=== PATIENT | male | born 1940 | race Caucasian/White ===

== ENCOUNTER 2017-01-03 13:14 | Outpatient (CLI) | payer MEDICARE, OTHER | END 2017-01-03 13:15 | disposition home or self-care (01) | DX: I48.91 Unspecified atrial fibrillation (principal) ==

== ENCOUNTER 2017-02-28 14:00 | Outpatient (CLI) | payer MEDICARE, OTHER | END 2017-02-28 14:01 | disposition home or self-care (01) | DX: I48.91 Unspecified atrial fibrillation (principal) ==

== ENCOUNTER 2017-03-27 16:07 | Outpatient (CLI) | payer MEDICARE, OTHER | END 2017-03-27 16:08 | disposition home or self-care (01) | LOC: RT 16:07 | PROVIDERS: ATTEND Family Medicine | DX: Z01.810 Encounter for preprocedural cardiovascular examination (principal) | CPT/HCPCS: 93005 ==

== ENCOUNTER 2017-05-25 14:39 | Outpatient (CLI) | payer MEDICARE, OTHER | END 2017-05-25 14:40 | disposition home or self-care (01) | LOC: LAB.F 14:39 | PROVIDERS: ATTEND Family Medicine | DX: I48.91 Unspecified atrial fibrillation (principal) | CPT/HCPCS: 85610 ==

== ENCOUNTER 2017-06-28 13:06 | Outpatient (CLI) | payer MEDICARE, OTHER | END 2017-06-28 13:07 | disposition home or self-care (01) | LOC: LAB.F 13:06 | PROVIDERS: ATTEND Family Medicine | DX: I48.91 Unspecified atrial fibrillation (principal) | CPT/HCPCS: 85610 ==

== ENCOUNTER 2017-08-08 14:39 | Outpatient (CLI) | payer MEDICARE, OTHER | END 2017-08-08 14:40 | disposition home or self-care (01) | LOC: LAB.F 14:39 | PROVIDERS: ATTEND Family Medicine | DX: I48.91 Unspecified atrial fibrillation (principal) | CPT/HCPCS: 85610 ==

== ENCOUNTER 2017-09-13 08:00 | Outpatient (CLI) | payer MEDICARE, OTHER | END 2017-09-13 08:01 | disposition home or self-care (01) | LOC: LAB.F 08:00 | PROVIDERS: ATTEND Family Medicine | DX: I48.91 Unspecified atrial fibrillation (principal) | CPT/HCPCS: 85610 ==

== ENCOUNTER 2017-10-18 15:09 | Outpatient (CLI) | payer MEDICARE, OTHER ==
[2017-10-18 18:51] LABS: ALBUMIN/GLOBULIN RATIO 1.2 (1.0-2.2); BUN - BLOOD UREA NITROGEN 23 mg/dL (6-20); CARBON DIOXIDE - CO2 26 mmol/L (21-32); CHLORIDE 106 mmol/L (101-111); CHOL/HDL RATIO 2.8 (<5.0); CHOLESTEROL 160 mg/dL; CREATININE 0.9 mg/dL (0.6-1.2); GFR - MDRD 81 (>89); GLUCOSE 100 mg/dL (70-100); HDL CHOLESTEROL 57 mg/dL; LDL/HDL RATIO 1.5 (<3.6); SODIUM 140 mmol/L (135-145); TOTAL PROTEIN 7.6 g/dL (6.7-8.2); TRIGLYCERIDES 75 mg/dL; VLDL CHOLESTEROL 15 mg/dL
== END 2017-10-18 15:10 | disposition home or self-care (01) ==
LOC: LAB.F 15:09
PROVIDERS: ATTEND Family Medicine
DX: I48.91 Unspecified atrial fibrillation (principal); I10 Essential (primary) hypertension
CPT/HCPCS: 36415; 80053; 80061; 84403; 84443; 85610

== ENCOUNTER 2017-11-23 15:01 | Outpatient (CLI) | payer MEDICARE, OTHER | END 2017-11-23 15:02 | disposition home or self-care (01) | LOC: LAB.F 15:01 | PROVIDERS: ATTEND Family Medicine | DX: I48.91 Unspecified atrial fibrillation (principal) | CPT/HCPCS: 85610 ==

== ENCOUNTER 2018-01-10 08:00 | Outpatient (CLI) | payer MEDICARE, OTHER | END 2018-01-10 08:01 | LOC: LAB.F 08:00 | PROVIDERS: ATTEND Family Medicine | DX: I48.91 Unspecified atrial fibrillation (principal) | CPT/HCPCS: 85610 ==

== ENCOUNTER 2018-02-27 14:54 | Outpatient (CLI) | payer MEDICARE, OTHER | END 2018-02-27 14:55 | disposition home or self-care (01) | LOC: LAB.F 14:54 | PROVIDERS: ATTEND Family Medicine | DX: I48.91 Unspecified atrial fibrillation (principal) | CPT/HCPCS: 85610 ==

== ENCOUNTER 2018-05-10 08:00 | Outpatient (CLI) | payer MEDICARE, OTHER | END 2018-05-10 08:01 | LOC: LAB.F 08:00 | PROVIDERS: ATTEND Family Medicine | DX: I48.91 Unspecified atrial fibrillation (principal) | CPT/HCPCS: 85610 ==

== ENCOUNTER 2018-06-14 10:15 | Outpatient (CLI) | payer MEDICARE, OTHER ==
[2018-06-14 17:42] LABS: BASOPHILS # (AUTO) 0.1 10^3/uL (0.0-0.1); BASOPHILS % (AUTO) 2.2 %; EOSINOPHILS % (AUTO) 0.9 %; HGB - HEMOGLOBIN 14.6 g/dL (14.0-18.0); LYMPHOCYTES # (AUTO) 1.2 10^3/uL (1.5-3.5); LYMPHOCYTES % (AUTO) 23.1 %; MEAN CORPUSCULAR HEMOGLOBIN 32.9 pg (27.0-31.0); MEAN CORPUSCULAR VOLUME 99.4 fL (80.0-94.0); MEAN PLATELET VOLUME 8.7 fL (7.4-11.4); MONOCYTES # (AUTO) 0.5 10^3/uL (0.0-1.0); NEUTROPHILS # (AUTO) 3.3 10^3/uL (1.5-6.6); NEUTROPHILS % (AUTO) 63.8 %; PLT - PLATELET COUNT 207 10^3/uL (130-450); RED BLOOD COUNT 4.44 10^6/uL (4.70-6.10); RED CELL DISTRIBUTION WIDTH 14.4 % (12.0-15.0); WHITE BLOOD COUNT 5.1 x10^3/uL (4.8-10.8)
[2018-06-14 17:51] LABS: INR 2.1 (0.8-1.2); PT - PROTHROMBIN TIME 22.6 secs (9.9-12.6)
[2018-06-14 18:10] LABS: HB2 TOTAL 15.4 g/dL; HEMOGLOBIN A1C 0.74 g/dL; HEMOGLOBIN A1C % 6.5 % (4.6-6.2)
[2018-06-14 18:26] LABS: ALBUMIN 3.9 g/dL (3.2-5.5); ALBUMIN/GLOBULIN RATIO 1.1 (1.0-2.2); ALKALINE PHOSPHATASE 81 IU/L (42-121); ALT ALANINE AMINOTRANSFERASE 18 IU/L (10-60); AST ASPARTATE AMINOTRANSFERASE 37 IU/L (10-42); BUN - BLOOD UREA NITROGEN 16 mg/dL (6-20); CALCIUM 8.9 mg/dL (8.5-10.3); CARBON DIOXIDE - CO2 28 mmol/L (21-32); CHLORIDE 103 mmol/L (101-111); CHOL/HDL RATIO 2.8 (<5.0); CHOLESTEROL 155 mg/dL; CREATININE 0.8 mg/dL (0.6-1.2); GFR - MDRD 93 (>89); GLUCOSE 115 mg/dL (70-100); HDL CHOLESTEROL 55 mg/dL; LDL CHOLESTEROL,CALCULATED 89 mg/dL; LDL/HDL RATIO 1.6 (<3.6); SODIUM 138 mmol/L (135-145); TOTAL PROTEIN 7.3 g/dL (6.7-8.2); VLDL CHOLESTEROL 11 mg/dL
== END 2018-06-14 10:16 | disposition home or self-care (01) ==
LOC: LAB.F 10:15
PROVIDERS: ATTEND Physician Assistant Medical
DX: E78.5 Hyperlipidemia, unspecified (principal); E11.9 Type 2 diabetes mellitus without complications; R53.83 Other fatigue; Z51.81 Encounter for therapeutic drug level monitoring; Z79.01 Long term (current) use of anticoagulants
CPT/HCPCS: 36415; 80053; 80061; 82043; 83036; 83721; 84443; 85025; 85610

== ENCOUNTER 2018-07-11 14:46 | Outpatient (CLI) | payer MEDICARE, OTHER | END 2018-07-11 14:47 | disposition home or self-care (01) | LOC: LAB.F 14:46 | PROVIDERS: ATTEND Family Medicine | DX: I48.91 Unspecified atrial fibrillation (principal) | CPT/HCPCS: 85610 ==

== ENCOUNTER 2018-08-14 08:00 | Outpatient (CLI) | payer MEDICARE, OTHER | END 2018-08-14 08:01 | disposition home or self-care (01) | LOC: LAB.F 08:00 | PROVIDERS: ATTEND Family Medicine | DX: I48.91 Unspecified atrial fibrillation (principal) | CPT/HCPCS: 85610 ==

== ENCOUNTER 2018-09-22 10:26 | Outpatient (CLI) | payer MEDICARE, OTHER | END 2018-09-22 10:27 | disposition home or self-care (01) | LOC: LAB.F 10:26 | PROVIDERS: ATTEND Family Medicine | DX: I48.91 Unspecified atrial fibrillation (principal) | CPT/HCPCS: 85610 ==

== ENCOUNTER 2018-11-06 14:31 | Outpatient (CLI) | payer MEDICARE, OTHER | END 2018-11-06 14:32 | disposition home or self-care (01) | LOC: LAB.F 14:31 | PROVIDERS: ATTEND Family Medicine | DX: I48.91 Unspecified atrial fibrillation (principal) | CPT/HCPCS: 85610 ==

== ENCOUNTER 2019-01-02 14:59 | Outpatient (CLI) | payer MEDICARE, OTHER | END 2019-01-02 15:00 | disposition home or self-care (01) | LOC: LAB.F 14:59 | PROVIDERS: ATTEND Family Medicine | DX: I48.91 Unspecified atrial fibrillation (principal) | CPT/HCPCS: 85610 ==

== ENCOUNTER 2019-01-11 15:06 | Outpatient (CLI) | payer MEDICARE, OTHER | END 2019-01-11 15:07 | disposition home or self-care (01) | LOC: LAB.F 15:06 | PROVIDERS: ATTEND Family Medicine | DX: I48.91 Unspecified atrial fibrillation (principal) | CPT/HCPCS: 85610 ==

== ENCOUNTER 2019-02-14 11:34 | Outpatient (CLI) | payer MEDICARE, OTHER | END 2019-02-14 11:35 | disposition home or self-care (01) | LOC: LAB.F 11:34 | PROVIDERS: ATTEND Family Medicine | DX: I48.91 Unspecified atrial fibrillation (principal) | CPT/HCPCS: 85610 ==

== ENCOUNTER 2019-02-23 08:00 | Outpatient (CLI) | payer MEDICARE, OTHER | END 2019-02-23 23:59 | disposition home or self-care (01) | LOC: LAB.F 08:00 | PROVIDERS: ATTEND Family Medicine | DX: I48.91 Unspecified atrial fibrillation (principal) | CPT/HCPCS: 85610 ==

== ENCOUNTER 2019-03-07 15:36 | Outpatient (CLI) | payer MEDICARE, OTHER | END 2019-03-07 23:59 | disposition home or self-care (01) | LOC: LAB.F 15:36 | PROVIDERS: ATTEND Family Medicine | DX: I48.91 Unspecified atrial fibrillation (principal) | CPT/HCPCS: 85610 ==

== ENCOUNTER 2019-03-16 08:00 | Outpatient (CLI) | payer MEDICARE, OTHER | END 2019-03-16 23:59 | disposition home or self-care (01) | LOC: LAB.F 08:00 | PROVIDERS: ATTEND Family Medicine | DX: I48.91 Unspecified atrial fibrillation (principal) | CPT/HCPCS: 85610 ==

== ENCOUNTER 2019-04-04 08:00 | Outpatient (CLI) | payer MEDICARE, OTHER | END 2019-04-04 23:59 | disposition home or self-care (01) | LOC: LAB.F 08:00 | PROVIDERS: ATTEND Physician Assistant Medical | DX: Z51.81 Encounter for therapeutic drug level monitoring (principal); Z79.01 Long term (current) use of anticoagulants | CPT/HCPCS: 85610 ==

== ENCOUNTER 2019-05-22 14:55 | Outpatient (CLI) | payer MEDICARE, OTHER | END 2019-05-22 14:56 | disposition home or self-care (01) | LOC: LAB.S 14:55 | PROVIDERS: ATTEND Physician Assistant Medical | DX: Z79.01 Long term (current) use of anticoagulants (principal) | CPT/HCPCS: 85610 ==

== ENCOUNTER 2019-05-31 12:04 | Outpatient (CLI) | payer MEDICARE, OTHER | END 2019-05-31 12:05 | disposition home or self-care (01) | LOC: LAB.S 12:04 | PROVIDERS: ATTEND Physician Assistant Medical | DX: Z79.01 Long term (current) use of anticoagulants (principal) | CPT/HCPCS: 85610 ==

== ENCOUNTER 2019-06-21 | Outpatient (CLI) | payer MEDICARE, OTHER | END 2019-06-21 13:00 | disposition home or self-care (01) | DX: Z79.01 Long term (current) use of anticoagulants (principal) | CPT/HCPCS: 85610 ==

== ENCOUNTER 2019-08-07 14:42 | Outpatient (CLI) | payer MEDICARE, OTHER | END 2019-08-07 14:43 | disposition home or self-care (01) | LOC: LAB.S 14:42 | PROVIDERS: ATTEND Physician Assistant Medical | DX: Z79.01 Long term (current) use of anticoagulants (principal) | CPT/HCPCS: 85610 ==

== ENCOUNTER 2019-09-10 12:59 | Outpatient (CLI) | payer MEDICARE, OTHER | END 2019-09-10 13:00 | disposition home or self-care (01) | LOC: LAB.S 12:59 | PROVIDERS: ATTEND Physician Assistant Medical | DX: Z79.01 Long term (current) use of anticoagulants (principal) | CPT/HCPCS: 85610 ==

== ENCOUNTER 2019-10-09 15:57 | Outpatient (CLI) | payer MEDICARE, OTHER | END 2019-10-09 15:58 | disposition home or self-care (01) | LOC: LAB.S 15:57 | PROVIDERS: ATTEND Family Medicine | DX: Z79.01 Long term (current) use of anticoagulants (principal) | CPT/HCPCS: 85610 ==

== ENCOUNTER 2019-10-17 14:41 | Outpatient (CLI) | payer MEDICARE, OTHER | END 2019-10-17 14:42 | disposition home or self-care (01) | LOC: LAB.S 14:41 | PROVIDERS: ATTEND Family Medicine | DX: Z79.01 Long term (current) use of anticoagulants (principal) | CPT/HCPCS: 85610 ==

== ENCOUNTER 2019-10-25 14:10 | Outpatient (CLI) | payer MEDICARE, OTHER | END 2019-10-25 14:11 | disposition home or self-care (01) | LOC: LAB.S 14:10 | PROVIDERS: ATTEND Family Medicine | DX: Z79.01 Long term (current) use of anticoagulants (principal) | CPT/HCPCS: 85610 ==

== ENCOUNTER 2019-11-27 08:00 | Outpatient (CLI) | payer MEDICARE, OTHER | END 2019-11-27 23:59 | disposition home or self-care (01) | LOC: LAB.S 08:00 | PROVIDERS: ATTEND Family Medicine | DX: Z79.01 Long term (current) use of anticoagulants (principal) | CPT/HCPCS: 85610 ==

== ENCOUNTER 2019-12-20 13:08 | Outpatient (CLI) | payer MEDICARE, OTHER | END 2019-12-20 13:09 | disposition home or self-care (01) | LOC: LAB.S 13:08 | PROVIDERS: ATTEND Family Medicine | DX: Z79.01 Long term (current) use of anticoagulants (principal) | CPT/HCPCS: 85610 ==

== ENCOUNTER 2020-02-05 11:32 | Outpatient (CLI) | payer MEDICARE, OTHER | END 2020-02-05 11:33 | disposition home or self-care (01) | LOC: LAB.S 11:32 | PROVIDERS: ATTEND Family Medicine | DX: Z79.01 Long term (current) use of anticoagulants (principal) | CPT/HCPCS: 85610 ==

== ENCOUNTER 2020-07-07 15:44 | Outpatient (CLI) | payer MEDICARE, OTHER | END 2020-07-07 15:45 | disposition home or self-care (01) | LOC: LAB.S 15:44 | PROVIDERS: ATTEND Family Medicine | DX: Z79.01 Long term (current) use of anticoagulants (principal) | CPT/HCPCS: 85610 ==

== ENCOUNTER 2020-08-12 15:01 | Outpatient (CLI) | payer MEDICARE, OTHER | END 2020-08-12 15:02 | disposition home or self-care (01) | LOC: LAB.S 15:01 | PROVIDERS: ATTEND Family Medicine | DX: Z79.01 Long term (current) use of anticoagulants (principal) | CPT/HCPCS: 85610 ==

== ENCOUNTER 2020-09-12 14:13 | Outpatient (CLI) | payer MEDICARE, OTHER | END 2020-09-12 14:14 | disposition home or self-care (01) | LOC: LAB.S 14:13 | PROVIDERS: ATTEND Family Medicine | DX: Z79.01 Long term (current) use of anticoagulants (principal) | CPT/HCPCS: 85610 ==

== ENCOUNTER 2020-10-20 13:25 | Outpatient (CLI) | payer MEDICARE, OTHER | END 2020-10-20 13:26 | disposition home or self-care (01) | LOC: LAB.S 13:25 | PROVIDERS: ATTEND Family Medicine | DX: Z79.01 Long term (current) use of anticoagulants (principal) | CPT/HCPCS: 85610 ==

== ENCOUNTER 2020-12-09 15:14 | Outpatient (CLI) | payer MEDICARE, OTHER | END 2020-12-09 15:15 | disposition home or self-care (01) | LOC: LAB.S 15:14 | PROVIDERS: ATTEND Family Medicine | DX: Z79.01 Long term (current) use of anticoagulants (principal) | CPT/HCPCS: 85610 ==

== ENCOUNTER 2021-02-05 15:38 | Outpatient (CLI) | payer MEDICARE, OTHER | END 2021-02-05 15:39 | disposition home or self-care (01) | LOC: LAB.S 15:38 | PROVIDERS: ATTEND Family Medicine | DX: Z79.01 Long term (current) use of anticoagulants (principal) | CPT/HCPCS: 85610 ==

== ENCOUNTER 2021-03-10 11:05 | Outpatient (CLI) | payer MEDICARE, OTHER | END 2021-03-10 11:06 | disposition home or self-care (01) | LOC: LAB.S 11:05 | PROVIDERS: ATTEND Family Medicine | DX: Z79.01 Long term (current) use of anticoagulants (principal) | CPT/HCPCS: 85610 ==

== ENCOUNTER 2021-04-13 16:00 | Outpatient (CLI) | payer MEDICARE, OTHER | END 2021-04-13 16:01 | disposition home or self-care (01) | LOC: LAB.S 16:00 | PROVIDERS: ATTEND Family Medicine | DX: Z79.01 Long term (current) use of anticoagulants (principal) | CPT/HCPCS: 36416; 85610 ==

== ENCOUNTER 2021-05-13 14:48 | Outpatient (CLI) | payer MEDICARE, OTHER | END 2021-05-13 14:49 | disposition home or self-care (01) | LOC: LAB.S 14:48 | PROVIDERS: ATTEND Family Medicine | DX: Z79.01 Long term (current) use of anticoagulants (principal) | CPT/HCPCS: 85610 ==

== ENCOUNTER 2021-05-21 15:14 | Outpatient (CLI) | payer MEDICARE, OTHER | END 2021-05-21 15:15 | disposition home or self-care (01) | LOC: LAB.S 15:14 | PROVIDERS: ATTEND Family Medicine | DX: Z79.01 Long term (current) use of anticoagulants (principal) | CPT/HCPCS: 36416; 85610 ==

== ENCOUNTER 2021-06-09 11:40 | Outpatient (CLI) | payer MEDICARE, OTHER ==
[2021-06-09 15:10] LABS: HCT - HEMATOCRIT 40.3 % (42.0-52.0); HGB - HEMOGLOBIN 13.3 g/dL (14.0-18.0); MEAN CORPUSCULAR HEMOGLOBIN 32.8 pg (27.0-31.0); MEAN CORPUSCULAR VOLUME 99.5 fL (80.0-94.0); MEAN PLATELET VOLUME 10.4 fL (7.4-11.4); RED BLOOD COUNT 4.05 10^6/uL (4.70-6.10); RED CELL DISTRIBUTION WIDTH 13.8 % (12.0-15.0); WHITE BLOOD COUNT 6.2 x10^3/uL (4.8-10.8)
[2021-06-09 16:06] LABS: ALBUMIN 4.2 g/dL (3.2-5.5); ALBUMIN/GLOBULIN RATIO 1.3 (1.0-2.2); BILIRUBIN,TOTAL 1.1 mg/dL (0.2-1.0); CALCIUM 9.1 mg/dL (8.5-10.3); CREATININE 1.1 mg/dL (0.6-1.2); POTASSIUM 4.6 mmol/L (3.5-5.0); TOTAL PROTEIN 7.5 g/dL (6.7-8.2)
[2021-06-09 20:27] LABS: ESTIMATED AVERAGE GLUCOSE 140 mg/dL (70-100); HEMOGLOBIN A1c% 6.5 % (4.27-6.07)
== END 2021-06-09 11:41 | disposition home or self-care (01) ==
LOC: LAB.S 11:40
PROVIDERS: ATTEND Internal Medicine Cardiovascular Disease
DX: Z01.812 Encounter for preprocedural laboratory examination (principal); I25.10 Atherosclerotic heart disease of native coronary artery without angina pectoris; Z79.01 Long term (current) use of anticoagulants; I35.0 Nonrheumatic aortic (valve) stenosis; E11.9 Type 2 diabetes mellitus without complications
CPT/HCPCS: 36415; 36416; 80053; 81599; 82565; 83036; 85027; 85610

== ENCOUNTER 2021-06-17 15:13 | Outpatient (CLI) | payer MEDICARE, OTHER | END 2021-06-17 15:14 | disposition home or self-care (01) | LOC: LAB.S 15:13 | PROVIDERS: ATTEND Family Medicine | DX: Z79.01 Long term (current) use of anticoagulants (principal) | CPT/HCPCS: 36416; 85610 ==

== ENCOUNTER 2021-07-09 12:46 | Outpatient (CLI) | payer MEDICARE, OTHER | END 2021-07-09 12:47 | disposition home or self-care (01) | LOC: LAB.S 12:46 | PROVIDERS: ATTEND Family Medicine | DX: Z79.01 Long term (current) use of anticoagulants (principal) | CPT/HCPCS: 36416; 85610 ==

== ENCOUNTER 2021-07-13 15:09 | Outpatient (CLI) | payer MEDICARE, OTHER | END 2021-07-13 15:10 | disposition home or self-care (01) | LOC: LAB.S 15:09 | PROVIDERS: ATTEND Family Medicine | DX: Z79.01 Long term (current) use of anticoagulants (principal) | CPT/HCPCS: 36416; 85610 ==

== ENCOUNTER 2021-08-10 15:44 | Outpatient (CLI) | payer MEDICARE, OTHER | END 2021-08-10 15:45 | disposition home or self-care (01) | LOC: LAB.S 15:44 | PROVIDERS: ATTEND Family Medicine | DX: Z79.01 Long term (current) use of anticoagulants (principal) | CPT/HCPCS: 36416; 85610 ==

== ENCOUNTER 2021-09-14 13:11 | Outpatient (CLI) | payer MEDICARE, OTHER ==
[2021-09-14 20:52] LABS: CALCIUM 9.1 mg/dL (8.5-10.3); POTASSIUM 4.4 mmol/L (3.5-5.0)
== END 2021-09-14 13:12 | disposition home or self-care (01) ==
LOC: LAB.S 13:11
PROVIDERS: ATTEND Internal Medicine Cardiovascular Disease
DX: I25.10 Atherosclerotic heart disease of native coronary artery without angina pectoris (principal); I25.83 Coronary atherosclerosis due to lipid rich plaque; Z79.01 Long term (current) use of anticoagulants
CPT/HCPCS: 36415; 80048; 85610

== ENCOUNTER 2021-10-21 13:17 | Outpatient (CLI) | payer MEDICARE, OTHER | END 2021-10-21 13:18 | disposition home or self-care (01) | LOC: LAB.S 13:17 | PROVIDERS: ATTEND Family Medicine | DX: Z79.01 Long term (current) use of anticoagulants (principal) | CPT/HCPCS: 36416; 85610 ==

== ENCOUNTER 2021-11-17 15:23 | Outpatient (CLI) | payer MEDICARE, OTHER ==
[2021-11-17 20:08] LABS: CALCIUM 9.5 mg/dL (8.5-10.3); POTASSIUM 4.3 mmol/L (3.5-5.0)
== END 2021-11-17 15:24 | disposition home or self-care (01) ==
LOC: LAB.S 15:23
PROVIDERS: ATTEND Family Medicine
DX: Z79.01 Long term (current) use of anticoagulants (principal); I10 Essential (primary) hypertension
CPT/HCPCS: 36415; 36416; 80048; 85610

== ENCOUNTER 2022-02-03 12:02 | Outpatient (CLI) | payer MEDICARE, OTHER | END 2022-02-03 12:03 | disposition home or self-care (01) | LOC: LAB.S 12:02 | PROVIDERS: ATTEND Family Medicine | DX: Z79.01 Long term (current) use of anticoagulants (principal) | CPT/HCPCS: 36416; 85610 ==

== ENCOUNTER 2022-03-17 15:59 | Outpatient (CLI) | payer MEDICARE, OTHER | END 2022-03-17 16:00 | disposition home or self-care (01) | LOC: LAB.S 15:59 | PROVIDERS: ATTEND Family Medicine | DX: Z79.01 Long term (current) use of anticoagulants (principal) | CPT/HCPCS: 36416; 85610 ==

== ENCOUNTER 2022-05-11 14:40 | Outpatient (CLI) | payer MEDICARE, OTHER | END 2022-05-11 14:41 | disposition home or self-care (01) | LOC: LAB.S 14:40 | PROVIDERS: ATTEND Family Medicine | DX: Z79.01 Long term (current) use of anticoagulants (principal) | CPT/HCPCS: 36416; 85610 ==

== ENCOUNTER 2022-08-30 10:49 | Outpatient (CLI) | payer MEDICARE, OTHER | END 2022-08-30 10:50 | disposition home or self-care (01) | LOC: LAB.S 10:49 | PROVIDERS: ATTEND Family Medicine | DX: Z79.01 Long term (current) use of anticoagulants (principal) | CPT/HCPCS: 36416; 85610 ==

== ENCOUNTER 2022-10-12 15:01 | Outpatient (CLI) | payer MEDICARE, OTHER | END 2022-10-12 15:02 | disposition home or self-care (01) | LOC: LAB.S 15:01 | PROVIDERS: ATTEND Family Medicine | DX: Z79.01 Long term (current) use of anticoagulants (principal) | CPT/HCPCS: 36416; 85610 ==

== ENCOUNTER 2022-10-19 14:31 | Outpatient (CLI) | payer MEDICARE, OTHER ==
[2022-10-19 20:37] LABS: ALBUMIN 3.9 g/dL (3.2-5.5); ALBUMIN/GLOBULIN RATIO 1.2 (1.0-2.2); BILIRUBIN,TOTAL 0.9 mg/dL (0.2-1.0); CALCIUM 9.3 mg/dL (8.5-10.3); CREATININE 1.1 mg/dL (0.6-1.2); POTASSIUM 4.1 mmol/L (3.5-5.0); TOTAL PROTEIN 7.2 g/dL (6.7-8.2)
== END 2022-10-19 14:32 | disposition home or self-care (01) ==
LOC: LAB.S 14:31
PROVIDERS: ATTEND Family Medicine
DX: Z79.01 Long term (current) use of anticoagulants (principal); I25.10 Atherosclerotic heart disease of native coronary artery without angina pectoris
CPT/HCPCS: 36415; 80053; 85610

== ENCOUNTER 2022-12-27 14:38 | Outpatient (CLI) | payer MEDICARE, OTHER | END 2022-12-27 14:39 | disposition home or self-care (01) | LOC: LAB.S 14:38 | PROVIDERS: ATTEND Family Medicine | DX: Z79.01 Long term (current) use of anticoagulants (principal) | CPT/HCPCS: 36416; 85610 ==

== ENCOUNTER 2023-03-12 18:31 | Outpatient (CLI) | payer MEDICARE, OTHER | END 2023-03-12 18:32 | disposition home or self-care (01) | LOC: LAB 18:31 | PROVIDERS: ATTEND Family Medicine | DX: Z79.01 Long term (current) use of anticoagulants (principal) | CPT/HCPCS: 36416; 85610 ==

== ENCOUNTER 2023-03-21 15:44 | Outpatient (CLI) | payer MEDICARE, OTHER | END 2023-03-21 15:45 | disposition home or self-care (01) | LOC: LAB 15:44 | PROVIDERS: ATTEND Family Medicine | DX: Z79.01 Long term (current) use of anticoagulants (principal) | CPT/HCPCS: 85610 ==